=== PATIENT | male | born 2000 | race African-American/Black ===

== ENCOUNTER 2019-01-24 18:13 | Emergency (ER) | payer BC ==
[~2019-01-24] VITALS: Ht 172.7 cm; Wt 63.5 kg
--- OUTSIDE RECORDS SUMMARY | 2019-01-24 18:15 | XMS REPORT | Encounter Summary ---
Author Organization Unknown Address [address] [place] [id number] Phone [phone] Reason for Visit Immunization Instructions 1. Immunization Menactra (PF) 4 mcg/0.5 mL intramuscular solution 2. Counseling Discussion Note Pt is in NAD; Verbalizes understanding of all instructions with no questions at this time. Patient educational handouts: No information available. Plan of Care Patient Instructions Refer to your VIS handout as discussed in clinic today regarding your care after administration. Follow up with your PCP as needed. In case of emergecy call 911 or go to nearest ER. Reminders Provider Appointments None recorded. Lab None recorded. Referral None recorded. Procedures None recorded. Surgeries None recorded. Imaging None recorded. Medications None recorded. Medications Administered None recorded. Vitals Height Weight BMI 5 ft 8 in 123 lbs 18.7 kg/m2 Lab Results None recorded. Allergies Code Code System Name Reaction Severity Onset NKDA Problems None recorded. Procedures None recorded. Vaccine List Vaccine Type meningococcal MCV4P 04/01/20170.5 mL Social History None recorded. Past Encounters 04/01/2017 Immunization; Counseling Jennifer Haq, SANDRO-C: [address] [place] [address], Ph. History of Present Illness Immunization Reported By: Patient HPI: Immunization Request (normal) no symptoms. Immunization eligibility questions No vaccines in last month, No reaction to previous vaccines:, No Known Allergies Review of Systems Basic Reported By: Patient Constitutional: Constitutional: no fever Physical Exam Immunization Reported By: Patient General Appearance: General: well-developed, well-nourished, no acute distress
--- OUTSIDE RECORDS SUMMARY | 2019-01-24 18:15 | XMS REPORT | Continuity of Care Document ---
Author Author [facility] Interface Address Unknown Phone Unavailable Problems Problem Status Onset Date Classification Date Reported Comments Source Immunization 04/01/2017 Diagnosis 04/01/2017 [facility] Counseling 04/01/2017 Diagnosis 04/01/2017 [facility] ANKLE PAIN Active 03/02/2014 [facility] Discharge Diagnosis: Ankle sprain 03/02/2014 03/05/2014 [facility] Medications Medication Details Route Status Patient Instructions Ordering Provider Order Date Source Ibuprofen 400 MG Oral Tablet 400 mg=1 tab, PO, Q4H, Pain, # 20 tab, 0 Refill(s) Active 03/03/2014 [facility] Motrin 400 mg, 1 tab, Route: PO, Drug form: TAB, ONCE, Dosing Weight 56.818, kg, Priority: STAT, Start date: 03/02/14 18:47:00, Stop date: 03/02/14 18:47:00Notes: (Same as: Motrin) "Do Not Crush" Give with food. Inactive 03/02/2014 [facility] Allergies, Adverse Reactions, Alerts Substance Category Reaction Severity Reaction type Status Date Reported Comments Source Immunizations Immunization Date Given Site Status Last Updated Comments Source meningococcal MCV4P 04/01/2017 completed [facility] Results Order Name Results Value Reference Range Date Interpretation Comments Source Vital Signs Vital Sign Value Date Comments Source Height 68 04/01/2017 [facility] Weight 123 04/01/2017 [facility] Heart Rate 69 03/03/2014 [facility] Temperature Oral (F) 98.6 F 03/03/2014 [facility] Diastolic (mm Hg) 69 03/03/2014 [facility] Respitory Rate 16 03/03/2014 [facility] Systolic (mm Hg) 125 03/03/2014 [facility] Weight 56.818 03/02/2014 [facility] Height 170.18 cm 03/02/2014 [facility] BMI Calculated 19.62 03/02/2014 [facility] Temperature Oral (F) 99.0 F 03/02/2014 [facility] Systolic (mm Hg) 131 03/02/2014 [facility] Heart Rate 72 03/02/2014 [facility] Diastolic (mm Hg) 78 03/02/2014 [facility] Respitory Rate 18 03/02/2014 [facility] Encounters Location Location Details Encounter Type Encounter Number Reason For Visit Attending Provider ADM Date DC Date Status Source [facility] [id number] Sam Ortiz 03/02/2014 03/03/2014 [facility] - [id number] Haq, ORNAMENT SETTER-C: [address] [facility] [place] [address], Ph. [id number] Jennifer Haq 04/01/2017 [facility] Procedures Procedure Code Date Perfomer Comments Source
--- OUTSIDE RECORDS SUMMARY | 2019-01-24 18:15 | XMS REPORT | Summary of Care ---
Author Organization Unknown Address Unknown Phone Unavailable Encounter JAEL Palomares(MIS) [id number] Date(s): 03/02/14 - 03/02/14 [facility] [address] [place], [place] [address] - [facility] Discharge Diagnosis: Ankle sprain Discharge Disposition: Home Physician Attending: Sam Ortiz MD Reason for Visit ANKLE PAIN Vital Signs Most recent to 1 2 oldest [Reference Range]: Height 170.18 cm (03/02/14 5:39 PM) Temperature Oral 98.6 DegF 99.0 DegF [96.8-99.7 DegF] (03/02/14 8:00 PM) (03/02/14 5:39 PM) Systolic Blood 125 mmHg 131 mmHg Pressure [90-138 (03/02/14 8:00 PM) (03/02/14 5:39 PM) mmHg] Diastolic Blood 69 mmHg 78 mmHg Pressure [45-84 (03/02/14 8:00 PM) (03/02/14 5:39 PM) mmHg] Respiratory Rate 16 BRMIN 18 BRMIN [14-20 BRMIN] (03/02/14 8:00 PM) (03/02/14 5:39 PM) Peripheral Pulse 69 bpm 72 bpm Rate [55-90 bpm] (03/02/14 8:00 PM) (03/02/14 5:39 PM) Weight 56.818 kg (03/02/14 5:39 PM) Body Mass Index 19.62 m2 (03/02/14 5:39 PM) Problem List No data available for this section Allergies, Adverse Reactions, Alerts Substance Reaction Severity Status NKDA Active Medications ibuprofen 400 mg oral tablet 400 mg=1 tab, PO, Q4H, Pain, # 20 tab, 0 Refill(s) Start Date: 03/02/14 Status: Ordered Motrin 400 mg, 1 tab, Route: PO, Drug form: TAB, ONCE, Dosing Weight 56.818, kg, Priori ty: STAT, Start date: 03/02/14 18:47:00, Stop date: 03/02/14 18:47:00 Notes: (Same as: Jer)"Do Not Crush" Give with food. Start Date: 03/02/14 Stop Date: 03/02/14 Status: Completed Medications Administered During Your Visit No data available for this section Immunizations No data available for this section
--- NOTE | 2019-01-24 18:50 | NUR ---
Report to PHANI Becerril
== END 2019-01-24 19:08 | disposition home or self-care (01) ==
LOC: FSED 18:13
DX: S01.511A Laceration without foreign body of lip, initial encounter (principal); W51.XXXA Accidental striking against or bumped into by another person, initial encounter; Y93.67 Activity, basketball; Y92.310 Basketball court as the place of occurrence of the external cause
CPT/HCPCS: 99282

== ENCOUNTER 2020-05-13 13:56 | Emergency (ER) | payer BC ==
[~2020-05-13] VITALS: Ht 172.7 cm; Wt 63.5 kg
[2020-05-13] MEDS ORDERED: LIDOCAINE VISC 2% SOLN 15 ML UDC ONE (14:12)
[2020-05-13] MEDS ORDERED: MAGNESIUM/ALUMINUM/SIMETHICONE 30 ML UDC ONE (14:12)
[2020-05-13] MEDS ORDERED: BELLADONNA ALK/PHENOBARBITAL 5 ML UDC ONE ×2 (14:12→14:13)
[2020-05-13] MEDS ORDERED: PANTOPRAZOLE 40 MG 10ML VIAL ONE (14:12)
[2020-05-13] MEDS ORDERED: SODIUM CHLORIDE 0.9% 500ML 500 ML IV STA (14:19)
--- NOTE | 2020-05-13 14:23 | Emergency Department Note ---
History of Present Illnes History of Present Illness Chief Complaint: Abdominal Complaints History of Present Illness This is a 19 year old male Chief Complaint Comment LUQ ABD PAIN INTERMITTENT. NO N/V/D/F. Ongoing for 3 days, getting better. No aggravating or relieving factors. Has not had this before, has not tried anything for this. Historian: Patient Arrival Mode: [place] Required: No Onset (how long ago): day(s) (3) Location: LUQ Quality: Dull Radiation: Reports non-radiation Severity: mild Onset quality: gradual Duration (how long): day(s) (3) Timing of current episode: constant Progression: improving Chronicity: new Context: Denies recent illness, Denies recent surgery Relieving factors: none Exacerbating factors: none Associated symptoms: Reports denies other symptoms Treatments prior to arrival: none Past Medical/Family History Physician Review I have reviewed the patient's past medical and family history. Any updates have been documented here. Past Medical History Recent Fever: No Clinical Suspicion of Infectio: No New/Unexplained Change in Ment: No Past Medical History: None Past Surgical History: None Other Last Tetanus: UNK Review of Systems Review of Systems Constitutional: Reports no symptoms EENTM: Reports no symptoms Cardiovascular: Reports no symptoms Respiratory: Reports no symptoms Gastrointestinal: Reports as per HPI, Reports abdominal pain Genitourinary: Reports no symptoms Musculoskeletal: Reports no symptoms Integumentary: Reports no symptoms Neurological: Reports no symptoms Psychological: Reports no symptoms Endocrine: Reports no symptoms Hematological/Lymphatic: Reports no symptoms Physical Exam Related Data Allergies: Coded Allergies: No Known Allergies (Unverified , 01/24/19) Triage Vital Signs Vital Signs Date Time Temp Pulse Resp B/P (MAP) Pulse Ox O2 Delivery O2 Flow Rate FiO2 05/13/20 14:11 98.1 94 14 160/104 100 Vital signs reviewed: Yes Physical Exam CONSTITUTIONAL Constitutional: Present well-developed, Present well-nourished HENT HENT: Present normocephalic, Present atraumatic, Present oropharynx clear/moist, Present nose normal HENT L/R: Present left ext ear normal, Present right ext ear normal EYES Eyes: Reports PERRL, Reports conjunctivae normal NECK Neck: Present ROM normal PULMONARY Pulmonary: Present effort normal, Present breath sounds normal CARDIOVASCULAR Cardiovascular: Present regular rhythm, Present heart sounds normal, Present capillary refill normal, Present normal rate GASTROINTESTINAL Abdominal: Present soft, Present nontender, Present bowel sounds normal GENITOURINARY Genitourinary: Present exam deferred SKIN Skin: Present warm, Present dry MUSCULOSKELETAL Musculoskeletal: Present ROM normal NEUROLOGICAL Neurological: Present alert, Present oriented x 3, Present no gross motor or sensory deficits PSYCHOLOGICAL Psychological: Present mood/affect normal, Present judgement normal Results Laboratory Lab results reviewed: Yes Assessment & Plan Medical Decision Making MDM 19 y.o M no PMH presents for LUQ abdominal pain x 3 days. Exam benign, no abd tenderness. Initial differential significant for peptic ulcer disease versus duodenal ulcer versus functional abdominal pain versus constipation. Labs are largely unremarkable. He is given 500 mL of NS, Protonix, GI cocktail with mild improvement. Instructed him to take acid medicinal chemist at home and follow up with primary doctor. Doubt emergent pathology at this time patient's appropriate discharge. Reassessment Reassessment time: 14:22 Reassessment Well appearing, NAD Assessment & Plan Final Impression: (1) Abdominal pain Depart Disposition: HOME, SELF-CARE Last Vital Signs Date Time Temp Pulse Resp B/P (MAP) Pulse Ox O2 Delivery O2 Flow Rate FiO2 05/13/20 14:11 98.1 94 14 160/104 100 Medications in the ED Lidocaine HCl 15 ml STK-MED ONCE .ROUTE ; Start 05/13/20 at 14:12; Stop 05/13/20 at 14:06; Status DC Belladonna Alkaloids/ Phenobarbital 5 ml STK-MED ONCE .ROUTE ; Start 05/13/20 at 14:12; Stop 05/13/20 at 14:06; Status DC Magnesium Aluminum Silicate 30 ml STK-MED ONCE .ROUTE ; Start 05/13/20 at 14:12; Stop 05/13/20 at 14:06; Status DC Pantoprazole Sodium 40 mg STK-MED ONCE .ROUTE ; Start 05/13/20 at 14:12; Stop 05/13/20 at 14:06; Status DC Belladonna Alkaloids/ Phenobarbital 5 ml STK-MED ONCE .ROUTE ; Start 05/13/20 at 14:13; Stop 05/13/20 at 14:06; Status DC ADILIA HARDY MD May 13, 2020 14:23
--- OUTSIDE RECORDS SUMMARY | 2020-05-13 14:26 | XMS REPORT | Continuity of Care Document ---
Author Author Marley RockspringsSCOTT Banks mAPPn Address Unknown Phone Unavailable Care Team Providers Care Career Coordinator Name Role Phone [facility] [employer] Unavailable Un available Problems Problem Status Onset Date Classification Date Reported Comments Source ANKLE PAIN Active 03/02/2014 [facility] Discharge Diagnosis: Ankle sprain 03/02/2014 03/05/2014 [facility] Medications Medication Details Route Status Patient Instructions Ordering Provider Order Date Source Ibuprofen 400 MG Oral Tablet 4 00 mg = 1 tab, PO, Q4H, Pain, # 20 tab, 0 Refill(s) Active 03/03/2014 [facility] Motrin Notes: (Same as: Motrin ) "Do Not Crush" Give with food. Inactive 03/02/2014 [facility] Allergies, Adverse Reactions, Alerts No Known Medication Allergies Immunizations No Data Provided for This Section Results No Data Provided for This Section Pathology Reports No Data Provided for This Section Diagnostic Reports No Data Provided for This Section Consultation Notes No Data Provided for This Section Discharge Summaries No Data Provided for This Section History and Physicals No Data Provided for This Section Vital Signs Vital Sign Value Date Comments Source Heart Rate 69 03/03/2014 [facility] Temperature Oral (F) 98.6 F 03/03/2014 [facility] Diastolic (mm Hg) 69 03/03/2014 [facility] Respitory Rate 16 03/03/2014 [facility] Systolic (mm Hg) 125 03/03/2014 [facility] Weight 56.818 03/02/2014 [facility] Height 170.18 cm 03/02/2014 [facility] BMI Calculated 19.62 03/02/2014 [facility] Temperature Oral (F) 99.0 F 03/02/2014 [facility] Systolic (mm Hg) 131 03/02/2014 [facility] Heart Rate 72 03/02/2014 [facility] Diastolic (mm Hg) 78 03/02/2014 [facility] Respitory Rate 18 03/02/2014 [facility] Encounters Location Location Details Encounter Type Encounter Number Reason For Visit Attending Provider ADM Date DC Date Status Source [facility] [id number] Sam Ortiz 03/02/2014 03/03/2014 [facility] Procedures No Data Provided for This Section Assessment and Plan No Data Provided for This Section Plan of Care No Data Provided for This Section Social History No Data Provided for This Section Family History No Data Provided for This Section Advance Directives No Data Provided for This Section Functional Status No Data Provided for This Section
--- OUTSIDE RECORDS SUMMARY | 2020-05-13 14:26 | XMS REPORT | Continuity of Care Document ---
Author Author [facility] t Organization [facility] Address [address] [place] [address] Phone Unavailable Care Team Providers Care Quality Assurance Qa Lab Technician Name Role Phone Janna JOHNSTON DO PCP Aubree Ortiz Attphys Problems Condition Name Condition Details Condition Category Status Onset Date Resolution Date Last Treatment Date Treating Clinician Comments Source ANKLE PAIN ANKL E PAIN Active 03/02/2014 [facility] Diagnosis Active 2014-03-02 11:30:00 2014-09-10 13:20:00 Marley Kamara Discharge Diagnosis: Ankle sprain Discharge Diagnosis: Ankle sprain 03/02/2014 03/05/2014 [facility] Problem 2 05:00:00 2014-03-05 04:12:01 2014-03-05 04:12:01 Marley Kamara Allergies, Adverse Reactions, Alerts This patient has no known allergies or adverse reactions. Medications Ordered Medication Name Filled Medication Name Start Date Stop Da te Current Medication? Ordering Clinician Indication Dosage Frequency Signature (SIG) Comments Components Source Ibuprofen 400 MG Oral Tablet 2014-03-03 00:10:00 Yes 400 mg = 1 tab, PO, Q4H, Pain, # 20 tab, 0 Refill(s) Bethanie Kamara Motrin 2014-03-02 23:47:00 No Notes: (Same as: Motcarlos) "Do Not Crush" Give with food. Marley Kamara Vital Signs Vital Name Observation Time Observation Value Comments Source Heart Rate 2014-03-03 01:00:00 Marley Kamara Temperature Oral (F) 2014-03-03 01:00:00 98.6 F Marley Kamara Diastolic (mm Hg) 2014-03-03 01:00:00 Bethanie Kamara Respitory Rate 2014-03-03 01:00:00 Naa Andrew Systolic (mm Hg) 2014-03-03 01:00:00 Ciaran Espinozaann Weight 2014-03-02 22:39:00 [facility] Height 2014-03-02 22:39:00 170.18 cm [facility] BMI Calculated 2014-03-02 22:39:00 [facility] Temperature Oral (F) 2014-03-02 22:39:00 99.0 F [facility] Systolic (mm Hg) 2014-03-02 22:39:00 Ciaran rial [facility] Heart Rate 2014-03-02 22:39:00 [facility] Diastolic (mm Hg) 2014-03-02 22:39:00 [facility] Respitory Rate 2014-03-02 22:39:00 [facility] Procedures This patient has no known procedures. Encounters Start Date/Time End Date/Time [facility] ID Source 2019-01-24 18:13:00 2019-01-24 19:08:00 Departed Emergency Room [facility] [id number] [facility] 2014-03-02 17:08:00 2014-03-02 20:01:00 Outpatient Sam Ortiz [id number] Results This patient has no known results.
[2020-05-13] MEDS ORDERED: SODIUM CHLORIDE 0.9% 500ML 500 ML ONE (14:27)
[2020-05-13] MEDS ORDERED: PANTOPRAZOLE 40 MG 10ML VIAL IV STA (14:29)
[2020-05-13] MEDS ORDERED: DONNATAL/LIDOCAINE/MAALOX 30 ML SUSP PO ONE (14:30)
== END 2020-05-13 14:54 | disposition home or self-care (01) ==
LOC: FSED 14:05
DX: R10.12 Left upper quadrant pain (principal)
CPT/HCPCS: 80053; 81003; 85025; 99283; C9113; J7040

== ENCOUNTER → 2020-05-26 | Outpatient (CLI) | payer BC ==
--- NOTE | 2020-05-26 11:24 | Diagnostic Imaging Report ---
EXAM: Complete Abdominal Ultrasound INDICATION: Left-sided abdominal pain ^[id number] ^[id number] ^LT SIDED ABD PAIN COMPARISON: None. TECHNIQUE: Transverse and longitudinal images of the upper abdomen were obtained. FINDINGS: Liver: Size: 12.9 cm in the right midclavicular line, normal Appearance: Normal echogenicity, smooth contour Mass: No focal masses Spleen: Size: 8.3 cm in length, normal Echogenicity: Normal Mass: No focal masses Gallbladder: Stones/Sludge: None Wall: 0.2 cm Appearance: No wall thickening, pericholecystic fluid or hydrops. Sonographic Johnston's Sign: Negative Bile Ducts: Intrahepatic Ducts: No dilatation Extrahepatic Ducts: Common bile duct measures 0.3 cm, no dilatation Pancreas: Visualized portions of the pancreatic head, neck and proximal body are normal. Kidneys: Length: Right 10.4 cm Left 8.3 cm Echogenicity: Normal Collecting System: No hydronephrosis Stone: None Cyst/Mass: None Vessels: Aorta: Visualized portions are normal Inferior Vena Cava: Visualized portions are normal Main Portal Vein: 0.9 cm, normal size with hepatopetal flow. Free Fluid: No ascites or pleural effusion IMPRESSION: Normal abdominal ultrasound. Signed by: Dr. Geovani Ramsay M.D. on 05/26/2020 11:21 AM
== END ==
LOC: US 09:45
PROVIDERS: ATTEND Internal Medicine Gastroenterology
DX: R10.9 Unspecified abdominal pain (principal)
CPT/HCPCS: 76700

== ENCOUNTER 2021-11-05 15:49 | Emergency (ER) | payer BC ==
[~2021-11-05] VITALS: Ht 172.7 cm; Wt 63.5 kg
== END 2021-11-05 16:52 | disposition home or self-care (01) ==
LOC: FSED 16:15
DX: H61.23 Impacted cerumen, bilateral (principal)
CPT/HCPCS: 99282